=== PATIENT | female | born 1960 | race Caucasian/White ===

== ENCOUNTER 2024-11-27 16:35 | Emergency (ER) | payer MEDICARE, MEDICAID, SELFPAY ==
[2024-11-27 17:17] VITALS: BP 120/77; PULSE 86; RESP 18; TEMP 36.9; O2SAT 95; BMI 31.8
--- NOTE | 2024-11-27 17:23 | XR_ITS ---
Examination: CT abdomen and pelvis without contrast. Coronal 3-D reconstructions. Sagittal 2-D reconstructions. Date and time of exam:November 27, 2024 1751 hrs. Indications: Right lower abdominal pain with diarrhea today Comparison: January 18, 2023 CTDI: vol (mGy): 13.4 DLP: (mGycm): 669 Technique: Axial images of the abdomen have been obtained, 3 mm slice thickness Intravenous contrast material has not been administered. Low dose protocols were performed. One or more of the following dose reduction techniques were used; automated exposure control, adjustment of the mA and/or KV according to patient size, use of iterative reconstruction technique. Findings: Hepatomegaly 19 cm fatty infiltration Absent gallbladder Normal pancreas Mild right hydronephrosis with wall thickening right pelvicalyceal system and ureter, acute pyelonephritis pattern No ureteral calculi No pericecal inflammatory change Colonic diverticulosis, no diverticulitis Urinary bladder wall thickening up to 13 mm Impression: Findings most consistent with right pyelonephritis, cystitis
--- NOTE | 2024-11-27 17:24 | PD.EDRME ---
Rapid Medical Screening Exam RME Arrival date/time: 11/27/24 16:35 63-year-old female presents to the emergency department today complains of abdominal pain dysuria and back pain Chief Complaint: Abdominal Pain Vital signs: Vital Signs Temperature 98.5 F 11/27/24 17:17 Pulse Rate 86 11/27/24 17:17 Respiratory Rate 18 11/27/24 17:17 Blood Pressure 120/77 11/27/24 17:17 Pulse Oximetry (%) 95 11/27/24 17:17 Oxygen Delivery Method Room Air 11/27/24 17:17
[2024-11-27 17:41] LABS: Basophils # (Auto) 0.1 Thou/mm3 (0.0-0.2); Basophils % (Auto) 1 % (0-2.5); Eosinophils # (Auto) 0.7 Thou/mm3 (0.0-0.5); Eosinophils % (Auto) 3 % (0-10); Hematocrit 43.2 % (36.0-46.0); Hemoglobin 14.3 g/dL (12.0-16.0); Immature Granulocytes % (Auto) 0 % (0-0); Immature Granulocytes Auto 0.09 Thou/mm3 (0.00-0.00); Lymphocytes # (Auto) 5.3 Thou/mm3 (1.0-4.8); Lymphocytes % (Auto) 24 % (10-50); Mean Corpuscular HGB Conc 33.1 g/dl (31.0-37.0); Mean Corpuscular Hemoglobin 31.2 pg (25.0-35.0); Mean Corpuscular Volume 94 fL (80-100); Monocytes # (Auto) 1.5 Thou/mm3 (0.0-0.8); Monocytes % (Auto) 7 % (0-12); Neutrophils # (Auto) 14.3 Thou/mm3 (1.8-7.7); Neutrophils % (Auto) 65 % (37-80); Nucleated Red Blood Cell % 0 /100 WBC (0); Platelet Count 238 Thou/mm3 (140-440); RDW Standard Deviation 45.1 fL (36.4-46.3); Red Blood Count 4.59 Miln/mm3 (4.00-5.20)
[2024-11-27 18:03] LABS: Alanine Aminotransferase 17 U/L (10-49); Albumin, Serum 4.7 gm/dL (3.4-4.8); Albumin/Globulin Ratio 1.5 (1.2-2.2); Alkaline Phosphatase 129 U/L (46-116); Anion Gap 6 (7-16); Aspartate Amino Transferase 16 U/L (0-34); BUN/Creatinine Ratio 13 Ratio (12-20); Bilirubin,Total 0.3 mg/dL (0.3-1.2); Blood Urea Nitrogen 14 mg/dL (9-23); Calcium 11.8 mg/dL (8.3-10.6); Calcium (Corrected) 11.8 mg/dL (8.5-10.1); Carbon Dioxide 28.5 mMol/L (20.0-31.0); Chloride 104 mMol/L (98-107); Creatinine (Component) 1.1 mg/dL (0.6-1.3); Estimated Creatinine Clearance 60.3 mL/min (>60); Globulin 3.2 gm/dL (2.3-3.5); Glucose 104 mg/dL (74-106); Lipase 43 U/L (12-53); Osmolality,Calculated 276 (275-295); Potassium 4.5 mMol/L (3.4-5.1); Sodium 138 mMol/L (136-145); Total Protein 7.9 gm/dL (5.7-8.2); eGFR 56 See Note
[2024-11-27 18:43] LABS: Collection Type, Urine Clean Catch
[2024-11-27 18:57] LABS: Bacteria,Urine Rare; Bilirubin,Urine Negative (Negative); Blood,Urine 1+ (Negative); Clarity,Urine Turbid (Clear/Hazy); Color,Urine Yellow (Lt Yel-Yel); Glucose, Urine Negative (Negative); Ketones,Urine Negative (Negative); Leukocyte Esterase,Urine Positive (Negative); Nitrite,Urine Positive (Negative); PH,Urine 6.5 (5.0-7.0); Protein,Urine 1+ (Neg - Trace); RBC,Urine 54 /hpf (0-3); Specific Gravity,Urine 1.016 (1.001-1.035); Squamous Epithelial Cell,Urine 9 /hpf (0-5); Urobilinogen,Urine Negative mg/dL (0.0-1.0); WBC,Urine 836 /hpf (0-5)
[2024-11-27 19:11] LABS: Culture Indicated,Urine Yes
[2024-11-27 19:56] VITALS: BP 148/78; PULSE 88; RESP 17; TEMP 37.1; O2SAT 97
--- NOTE | 2024-11-28 | PD.EDABDPN ---
ED Abdominal Pain RME/HPI General Chief Complaint: Abdominal Pain Stated complaint: mid abd. pain, foul smelling urine x 1month Time seen by provider: 11/27/24 20:43 Arrival date/time: 11/27/24 16:35 Source: patient Mode of arrival: ambulatory Limitations: no limitations RME / HPI RME / HPI narrative: 11/27/24 16:35 63-year-old female presents to the emergency department today complains of abdominal pain dysuria and back pain. Dr. Brink?s Main ED Evaluation: 63-year-old female presents to the ED with worsening mid-abdominal pain and foul-smelling urine, occurring intermittently for the past month. She describes the pain as constant and severe, rating it 10/10. She also reports dysuria and back pain. The patient declines any further work-up and prefers to follow up with her primary care provider. Related Data Home Medications ?Medication ?Instructions ?Recorded ?Confirmed anastrozole 1 mg tablet (Arimidex) 1 mg PO QDAY #0 tabs 06/02/16 12/08/22 atenolol 50 mg tablet (Tenormin) 50 mg PO QAM #0 tabs 06/02/16 12/09/22 metformin 500 mg tablet 500 mg PO BIDAC #0 tabs 05/19/17 12/08/22 (Glucophage) baclofen 20 mg tablet 20 mg PO TID 05/13/19 12/08/22 furosemide 40 mg tablet (Lasix) 40 mg PO QDAY 05/13/19 12/08/22 losartan 50 mg tablet 50 mg PO QDAY 05/13/19 12/09/22 albuterol sulfate 90 mcg/actuation 2 puff inhalation BID 08/27/20 12/08/22 aerosol inhaler (Ventolin HFA) aspirin 81 mg tablet,delayed 81 mg PO QDAY 08/27/20 12/09/22 release cholecalciferol (vitamin D3) 25 25 mcg PO QDAY 08/27/20 12/08/22 mcg (1,000 unit) capsule (Vitamin D3) levothyroxine 137 mcg tablet 137 mcg PO QDAY 08/27/20 12/08/22 potassium chloride 20 mEq 20 meq PO QDAY 08/27/20 12/08/22 tablet,extended release(part/cryst) rosuvastatin 20 mg tablet 20 mg PO DAILY 12/08/22 12/08/22 Previous Rx's ?Medication ?Instructions ?Recorded cephalexin 500 mg capsule 500 mg PO QID 10 days #40 caps 11/28/24 Allergies Allergy/AdvReac Type Severity Reaction Status Date / Time Penicillins Allergy Severe HIVES Verified 11/27/24 16:38 Sulfa (Sulfonamide Allergy Severe HIVES Verified 11/27/24 16:38 Antibiotics) Review of Systems Review of Systems Systems Reviewed: All systems reviewed, normal except as documented Past Medical History Past Medical History NEUROLOGIC: Positive Migraine; Negative Neurological Disorders or Seizures CARDIAC: Positive Cardiac Disorders, Hypercholesterolemia, Edema and Hypertension; Negative Congestive Heart Failure, Cellulitis or Varicose Veins RESPIRATORY: Positive Chronic Obstructive Pulmonary Disease (COPD) and Asthma; Negative Tuberculosis or Sleep Apnea GASTROINTESTINAL: Positive Gastrointestinal Disorders (DIARRHEA), Gall Bladder Disease, Hemorrhoids, Gastroesophageal Reflux Disease and Obesity GENITOURINARY: Negative Genitourinary Disorders or Renal Disease REPRODUCTIVE: Positive Breast Cancer (left 2012) and Previous Pregnancies MUSCULOSKELETAL: Positive Musculoskeletal Disorders, Arthritis and Gout ENDOCRINE: Positive Endocrine Disorders, Diabetes Mellitus Type 2 and Hypothyroidism; Negative Diabetes Mellitus Type 1 HEMATOLOGIC: Negative Blood Disorders, Sickle Cell Disease or Clotting Problems PSYCHO/SOCIAL: Negative Depression OTHER HISTORY: Positive Shingles, Radiation Therapy (2013), Chicken Pox, Measles, Mumps, Cancer and Breast Cancer (left 2013); Negative Hospitalization, Autoimmune Disease, Falls, Blood Transfusions, Anesthesia Reactions, Chemotherapy or MRSA Family History FAMILY HISTORY: Positive Family Respiratory Disorders, Family Cardiac Disorders, Family Cancer and Family Surgery; Negative Family Psychiatric Problems, Family Gastrointestinal Problems or Family Anesthesia Reaction Surgical History SURGICAL: Positive Mastectomy, Lumpectomy (LEFT WITH LYMPH NODES REMOVED) and Tubal Ligation; Negative Cardiac Surgery, Pacemaker, Abdominal Surgery, Nephrectomy or Joint Replacement Social History SMOKING STATUS: Current every day smoker SUBSTANCE USE: does not use ED Exam Narrative Physical exam: GENERAL: In general the patient is awake, interactive, in an emergency department gurney. HEAD/EYES/EARS/NOSE/THROAT: normo-cephalic, atraumatic, mucus membranes are moist. No cervical tenderness palpation midline. Supple neck. CARDIOVASCULAR: regular rate and regular rhythm, no murmurs, heart sounds are not distant, strong pulses in all four extremities that are equal and symmetric bilateral upper and lower extremities, normal capillary refill. CHEST/PULMONARY: normal chest rise and fall, good air movement, clear to auscultation bilaterally, normal inspiratory to expiratory ratios without evidence of respiratory distress. ABDOMEN: soft, not tender, no masses appreciated BACK: normal range of motion without pain. NEUROLOGICAL: cranio-facial features are symmetric, moves all four extremities equally without obvious limitations or weakness. EXTREMITY: no tenderness to palpation over the long bones or large joints of the bilateral upper and lower extremities, no joint swelling, no joint erythema, no signs of trauma, no unilateral leg swelling and no peripheral edema. SKIN: warm, dry, well-perfused, no jaundice, no rash, no telangiectasias or petechia. PSYCH: calm, cooperative, no evidence of psychosis or agitation General Limitations: Present no limitations Course Course Course Narrative: The patient has previously received cephalexin and ceftriaxone without any reported adverse reactions or complications. Quality Measures none Orders Category Date Time Status CT abdomen pelvis wo con Stat Exams 11/27/24 17:23 Completed CBC Stat Lab 11/27/24 17:30 Completed Comprehensive Metabolic Panel Stat Lab 11/27/24 17:30 Completed Lipase Stat Lab 11/27/24 17:30 Completed UA, C/S IF [Urinalysis, C/S if Indicated] Stat Lab 11/27/24 18:37 Completed Urine Culture Stat Lab 11/27/24 18:37 Received Sodium Chloride 0.9% 500 ml [Ns] 500 ml Med 11/28/24 00:08 Discontinued IV 999 mls/hr cefTRIAXone [Rocephin] 2 gm Med 11/28/24 00:07 Discontinued SODIUM CHLORIDE 0.9% (Popper) [Ns 0.9% (P)] 50 ml IV X1 Vital Signs Vital signs: Vital Signs Temperature 98.5 F 11/27/24 17:17 Pulse Rate 86 11/27/24 17:17 Respiratory Rate 18 11/27/24 17:17 Blood Pressure 120/77 11/27/24 17:17 Pulse Oximetry (%) 95 11/27/24 17:17 Oxygen Delivery Method Room Air 11/27/24 17:17 Abdominal Pain MDM MDM Narrative MDM Narrative:: The patient was evaluated and advised to remain in the ED for further treatment and/or admission due to their medical condition. The risks of leaving against medical advice, including potential worsening of their condition, complications, and possible life-threatening consequences, were thoroughly explained. The patient demonstrated decision-making capacity, was alert and oriented, and verbalized understanding of the risks and recommendations. Patient is at risk for septic especially since she is a diabetic with blood thinners 22,000 pyelonephritis. Doubt kidney stone, or ischemic bowel. While in the emergency department she was treated with ceftriaxone which she is allergic to, 500 cc normal saline, 45 assumed to be 2000. She is not hypotensive and not tachycardic. BUN/creatinine are normal. Despite this, the patient has elected to leave [place]. Alternative treatment options were discussed, and the patient declined further care at this time. The patient was advised to follow up with their primary care provider and to return to the ER immediately if symptoms worsen or new concerns arise. Scribe Attestation: Vale Jeffries am scribing for and in the presence of Dr. Brink. Provider Notation: Although this document has been carefully reviewed, there may still be some phonetic and other typographical errors. These errors are purely grammatical due to imperfections in the software program and should not be construed in any way to compromise the substance of the patient's medical care during this visit. Patient data External records reviewed:: [facility] previous records Clinical information provided by:: patient Social determinants that could affect healthcare access:: none Patient has the following chronic illnesses:: see PMH How is presenting disease/condition affected by chronic disease/condition?: uneffected by Evaluation data The following diagnostics were reviewed and interpreted by me:: lab results and radiology exam(s) Lab and/or radiology exams considered but not ordered:: na Interpretation Summary: I personally reviewed the radiology data and agree with the radiologist's interpretation. Examination: CT abdomen and pelvis without contrast. Date and time of exam:November 27, 2024 1751 hrs. Indications: Right lower abdominal pain with diarrhea today Comparison: January 18, 2023 Findings: Hepatomegaly 19 cm fatty infiltration Absent gallbladder Normal pancreas Mild right hydronephrosis with wall thickening right pelvicalyceal system and ureter, acute pyelonephritis pattern No ureteral calculi No pericecal inflammatory change Colonic diverticulosis, no diverticulitis Urinary bladder wall thickening up to 13 mm Impression: Findings most consistent with right pyelonephritis, cystitis Dictated By: Roman Delgadillo MD Medications / Prescriptions Medications or Prescriptions considered but not ordered:: na Medication administrations:: Medication Administration History Discontinued Medications Ceftriaxone Sodium 2 gm/ (Sodium Chloride) 50 mls @ 100 mls/hr IV X1 ONE Stop: 11/28/24 00:36 Sodium Chloride (Ns) 500 mls @ 999 mls/hr IV .Q31M ONE Stop: 11/28/24 00:38 as above, if any Consultations Consultation(s) initiated? (list below): No Diagnosis Differential diagnosis abdominal pain: abdominal pain, calculus of kidney, constipation and other (kidney stone, pyelonephritis) Most likely diagnosis given after review of the tests above:: see clinical impression below Admission Indicated Admission indicated?: not indicated Explain why admission is indicated or not indicated:: Patient left AMA Admission Request Was there a request for admission?: No Disposition Plan Disposition Plan: other (specify) (AMA) Discharge Plan Plan Patient Disposition: Left Against Medical Advice Patient condition on transfer: Stable Prescriptions/Referrals Prescriptions/Med Rec: New cephalexin 500 mg capsule 500 mg PO QID 10 Days Qty: 40 0RF Rx Instructions: Patient has taken in the past without allergic reaction. No Action anastrozole [Arimidex] 1 MG tablet 1 mg PO QDAY Qty: 0 atenolol [Tenormin] 50 MG tablet 50 mg PO QAM Qty: 0 metformin [Glucophage] 500 MG tablet 500 mg PO BIDAC Qty: 0 levothyroxine 137 mcg Tablet 137 mcg PO QDAY aspirin 81 mg Tablet,Delayed Release (Dr/Ec) 81 mg PO QDAY potassium chloride 20 mEq Tablet,Er Particles/Crystals 20 meq PO QDAY albuterol sulfate [Ventolin HFA] 90 mcg/actuation Hfa Aerosol Inhaler 2 puff INHALATION BID cholecalciferol (vitamin D3) [Vitamin D3] 25 mcg (1,000 unit) Capsule 25 mcg PO QDAY losartan 50 mg Tablet 50 mg PO QDAY furosemide [Lasix] 40 mg Tablet 40 mg PO QDAY baclofen 20 mg Tablet 20 mg PO TID rosuvastatin 20 mg tablet 20 mg PO DAILY Patient Comments: TAKE ONE TABLET BY MOUTH EVERY DAY Referrals: No Primary/Family,Physician [Primary Care Provider] - In 1 week Problem List Clinical Impression: Pyelonephritis, Left against medical advice, Leukocytosis Patient/Caregiver Discharge Instructions Education Materials: When to Use Antibiotics, ED Pyelonephritis, Female (Adult) Additional Instructions: You have decided to leave AGAINST MEDICAL ADVICE from the Emergency Department. 1. DO READ your discharge instructions as these contain important information concerning your medical care. 2. If medication has been prescribed for your condition, fill the prescription as soon as possible and follow the directions on the medication. 3. RETURN AT ONCE TO THE EMERGENCY DEPARTMENT if you have any problems or concerns. These include but are not limited to fever, worsening pain(belly, chest, head, etc...), worsening shortness of breath, inability to tolerate food and water, or any condition that makes you question your well-being. Also, if your symptoms do not improve in the next 12-24 hours, return to the ER or seek medical care immediately.? 4. Be sure to follow up with your regular physician or specialist in the next 48 hours to get the results of the urine culture. At discharge as this is the best way to ensure that you receive the very best of care. If you do not have a primary care physician, please contact a physician group and make an appointment. 5. Please visit [employer]?for coupons regarding your prescriptions. It is a free service for you to use and can help reduce the cost of your medication. We would like to thank you for coming today and our hope is that we served you and your family well during your stay Print Language: Slovenian
--- NOTE | 2024-11-28 00:35 | PC.NURSE ---
per provider patient wishes to sign out AMA. patient signed out AMA at [id number]
== END 2024-11-28 22:12 | disposition left against medical advice (07) ==
PROVIDERS: Nurse Practitioner Primary Care; Emergency Provider Emergency Medicine
DX: N12 Tubulo-interstitial nephritis, not specified as acute or chronic (principal); Z53.29 Procedure and treatment not carried out because of patient's decision for other reasons
CPT/HCPCS: 36415; 74176; 80053; 81001; 83690; 85025; 87077; 87086; 87186; 99284

== ENCOUNTER → 2025-02-16 | Outpatient (CLI) | payer MEDICARE, MEDICAID, SELFPAY ==
--- NOTE | 2025-02-16 17:00 | XR_ITS ---
Examination: CT chest, without intravenous contrast. Sagittal and coronal 2-D reconstructions. Exam date and time: February 16, 2025, 1732 hours INDICATIONS: Nicotine dependence, smoking history 40 years CTDI:vol (mGy) 12.1 DLP: (mGycm) 508 Technique: Multiple 3.0 mm axial sections of the chest to been obtained. Bone and lung density settings are obtained. Sagittal and coronal 2-D reconstructions have been obtained. Low dose protocols were performed. One or more of the following dose reduction techniques were used; automated exposure control, adjustment of the mA and/or KV according to patient size, use of iterative reconstruction technique. Findings: Thoracic aortic calcification no aneurysmal dilatation Pulmonary artery segments are not enlarged No paratracheal tracheobronchial or bronchopulmonary adenopathy. 4 mm pulmonary nodule left upper lobe image 196 No pneumonia or pulmonary edema or pleural disease No visualized liver or splenic lesion Absent gallbladder No pancreatic or adrenal mass Mild thoracic spondylosis IMPRESSION: 4 mm pulmonary nodule left upper lobe, with this study as baseline recommend 6 month follow-up CT chest without contrast
== END | disposition home or self-care (01) ==
PROVIDERS: PCP Physician Assistant; Referring Provider Physician Assistant; Visit Provider Physician Assistant
DX: R91.1 Solitary pulmonary nodule (principal); F17.210 Nicotine dependence, cigarettes, uncomplicated
CPT/HCPCS: 71271